=== PATIENT | male | born 1965 | race Caucasian/White ===

== ENCOUNTER 2016-11-14 09:12 | Emergency (ER) | payer SELFPAY ==
[~2016-11-14] VITALS: Ht 160 cm; Wt 88.0 kg
[2016-11-14 09:15] VITALS: BP 173/85
--- NOTE | 2016-11-14 09:20 | NUR ---
PT AMBULATED TO ER BED 3.
[2016-11-14] MEDS ORDERED: LIDOCAINE 1% 500 MG/50 ML VIAL INJ SCH (09:30)
[2016-11-14] MEDS ORDERED: KETOROLAC 60 MG/2 ML VIAL IM ONE (09:30)
[2016-11-14] MEDS ORDERED: LEVOFLOXACIN 500 MG TAB PO ONE (09:30)
--- NOTE | 2016-11-14 09:30 | NUR ---
51/M PRESENTS TO ERC/O LEFT EAR PAIN X5 DAYS. PT STATES PAIN 6/10 SHARP ACHING CONTINOUS. HX DM, HTN, HYPERLIPIDEMIA, GOUT, GLAUCOMA. AAOx4, PERRLA, BREATHING EVEN AND UNLABORED. ERMD NOTIFIED OF PATIENT STATUS.
--- NOTE | 2016-11-14 09:31 | NUR ---
Patient being evaluated by physician at bedside.
--- NOTE | 2016-11-14 10:04 | NUR ---
Patient appears to be resting comfortably in bed. Vital Signs within normal limits. Respirations even and unlabored.
[2016-11-14] MEDS ORDERED: AZITHROMYCIN 500 MG in DEXTROSE 5% 250 ML IV ONE (10:10)
[2016-11-14] MEDS ORDERED: NACL 0.9% 1,000 ML IV ONE ×2 (10:10→11:10)
[2016-11-14] MEDS ORDERED: INSULIN HUMAN REGULAR 100 UNITS/ML 10 ML VIAL IVP ONE (10:10)
[2016-11-14] MEDS ORDERED: AZITHROMYCIN 500 MG INJ VIAL IV ONE (10:21)
--- NOTE | 2016-11-14 11:30 | NUR ---
PT RESTING. VSS; PATIENT POSITIONED FOR COMFORT; HOB ELEVATED; BEDRAILS UP X2; BED DOWN. ER MD MADE AWARE OF PT STATUS.
--- NOTE | 2016-11-14 12:24 | NUR ---
PT RESTING. VSS; PATIENT POSITIONED FOR COMFORT; HOB ELEVATED; BEDRAILS UP X2; BED DOWN. ER MD MADE AWARE OF PT STATUS.
--- NOTE | 2016-11-14 12:35 | NUR ---
Patient discharged with v/s stable. Written and verbal after care instructions given and explained. Patient alert, oriented and verbalized understanding of instructions. Ambulatory with steady gait. All questions addressed prior to discharge. ID band removed. Patient advised to follow up with PMD. Rx of KEFLEX 500MG CAPSULE AND CORTISPORIN OTIC SUSPENSION given. Patient educated on indication of medication including possible reaction and side effects. Opportunity to ask questions provided and answered.
[2016-11-14 12:36] VITALS: BP 124/91
== END 2016-11-14 12:35 | disposition home or self-care (01) ==
LOC: MED 09:12
DX: H66.92 Otitis media, unspecified, left ear (principal); E11.65 Type 2 diabetes mellitus with hyperglycemia; I10 Essential (primary) hypertension
CPT/HCPCS: 36415; 80048; 82948; 96365; 96372; 96375; 99284; J0456; J1815; J1885; J7030; J7060

== ENCOUNTER 2023-01-03 20:16 | Emergency (ER) | payer OTHER ==
[~2023-01-03] VITALS: Ht 160 cm; Wt 71.4 kg
[2023-01-03 20:52] VITALS: BP 113/70
[2023-01-03 21:32] LABS: BASOPHILS % (AUTO) 0.2 % (0.0-2.0); EOSINOPHILS # (AUTO) 0.1 K/uL (0-0.4); EOSINOPHILS % (AUTO) 0.5 % (0.0-4.0); HEMATOCRIT 38.2 % (36-52); LYMPHOCYTES # (AUTO) 1.4 K/uL (2.0-11.5); LYMPHOCYTES % (AUTO) 11.1 % (20.5-51.1); MEAN CORPUSCULAR HEMOGLOBIN 29 pg (27-31); MEAN CORPUSCULAR HGB CONC 34 g/dL (33-37); MEAN CORPUSCULAR VOLUME 83.4 fL (80-94); MONOCYTES % (AUTO) 8.1 % (1.7-9.3); NEUTROPHILS # (AUTO) 9.8 K/uL (1.8-7.7); NEUTROPHILS % (AUTO) 80.1 % (42.2-75.2); PLATELET COUNT (AUTO) 284 K/uL (140-450); RED BLOOD CELL COUNT(AUTO) 4.58 MIL/uL (4.20-6.10); RED CELL DISTRIBUTION WIDTH 12.9 % (11.6-13.7); WHITE BLOOD COUNT (AUTO) 12.3 K/uL (4.8-10.8)
[2023-01-03 21:51] LABS: ANION GAP 15.6 (8-16); CARBON DIOXIDE 27.3 mmol/L (21-32); CREATININE 1.6 mg/dL (0.6-1.3); POTASSIUM 4.9 mmol/L (3.5-5.1); TOTAL BILIRUBIN 0.6 mg/dL (0.0-1.0)
--- NOTE | 2023-01-03 21:51 | NUR ---
Pt to bed 7
--- NOTE | 2023-01-03 21:51 | NUR ---
Patient resting in bed, A/Ox4, chest rise and fall symmetrical, no s/s of distress, patient on monitor.
--- NOTE | 2023-01-03 21:55 | NUR ---
ER physician at bedside.
[2023-01-03] MEDS ORDERED: NACL 0.9% 2,000 ML IV ONE (22:05)
--- NOTE | 2023-01-03 22:10 | NUR ---
Patient resting in bed, A/Ox4, chest rise and fall symmetrical, no s/s of distress, patient on monitor.
[2023-01-03 23:25] LABS: APPEARANCE,URINE CLEAR (CLEAR); BILIRUBIN,URINE NEGATIVE (NEGATIVE); BLOOD, URINE NEGATIVE (NEGATIVE); COLOR,URINE YELLOW (YELLOW); LEUKOCYTE ESTERASE ,URINE NEGATIVE (NEGATIVE); NITRITE, URINE NEGATIVE (NEGATIVE); PH,URINE 5.5 (5.0-9.0); UGLUCOSE 3+ (NEGATIVE)
[2023-01-03 23:43] LABS: RBC,URINE NONE SEEN /HPF (0-5)
--- NOTE | 2023-01-04 00:35 | NUR ---
Patient resting in bed, A/Ox4, chest rise and fall symmetrical, no c/o pain or s/s of distress, patient on monitor.
[2023-01-04] MEDS ORDERED: INSULIN REGULAR, HUMAN 100 UNIT/ML VIAL SUBQ ONE (00:55)
[2023-01-04] MEDS ORDERED: AMOX-1230 PO (01:10)
[2023-01-04] MEDS ORDERED: ACET-10509 PO (01:10)
--- NOTE | 2023-01-04 01:19 | NUR ---
Dr. Jimenes spoke with patient. Dr. Jimenes verbalized understanding of last Accucheck and ordered 10 units SQ Humulin R and stated, "Patient ok to discharge after giving 10 units SQ Humulin R. Readback compltet. Addendum: 01/04/23 at [email or web address] Jimenes spoke with patient. Dr. Jimenes verbalized understanding of last Accucheck and ordered 10 units SQ Humulin R and stated, "Patient ok to discharge after giving 10 units SQ Humulin R. Readback complete. Patient stated that when he gets home, he "will recheck his blood sugar level."
[2023-01-04 01:33] VITALS: BP 127/81
== END 2023-01-04 01:34 | disposition home or self-care (01) ==
LOC: MED 20:16
DX: E86.0 Dehydration (principal); E11.65 Type 2 diabetes mellitus with hyperglycemia; N28.9 Disorder of kidney and ureter, unspecified; J18.9 Pneumonia, unspecified organism; I10 Essential (primary) hypertension; Z79.899 Other long term (current) drug therapy
CPT/HCPCS: 36415; 71045; 80053; 81001; 83690; 84484; 85025; 93005; 96360; 96361; 96372; 99285; J1815; J7030

== ENCOUNTER 2023-04-25 04:35 | Inpatient (IN) | payer OTHER ==
[~2023-04-25] VITALS: Ht 160 cm; Wt 65.8 kg
[2023-04-25] VITALS (7 sets, daily range): BP systolic 86–123; BP diastolic 54–79; PULSE 65–107; RESP 16–20; TEMP 97.9–98.2; O2SAT 95–99
[~2023-04-25 04:35] MED LIST: ACET-10509 PO; AMOX-1230 PO
[2023-04-25] MEDS ORDERED: NACL 0.9% 1,000 ML IV ONE (05:35)
[2023-04-25] MEDS ORDERED: AZITHROMYCIN 500 MG in DEXTROSE 5% 250 ML IV ONE (05:35)
[2023-04-25 05:44] LABS: APPEARANCE,URINE CLEAR (CLEAR); BILIRUBIN,URINE NEGATIVE (NEGATIVE); BLOOD, URINE NEGATIVE (NEGATIVE); COLOR,URINE YELLOW (YELLOW); LEUKOCYTE ESTERASE ,URINE NEGATIVE (NEGATIVE); NITRITE, URINE NEGATIVE (NEGATIVE); PROTEIN,URINE NEGATIVE (NEGATIVE); UGLUCOSE 3+ (NEGATIVE); UROBILINOGEN,URINE 0.2 EU/dL (0.2 - 1)
[2023-04-25] MEDS ORDERED: cefTRIAXone 1,000 MG VIAL ONE (06:09)
[2023-04-25 06:14] LABS: BLOOD GAS PCO2 28.8 mmHg (35-45); BLOOD GAS PO2 86.2 mmHg (75-100)
[2023-04-25 06:19] LABS: BLOOD GAS O2 SAT% 97.5 % (92.0-98.5)
[2023-04-25] MEDS ORDERED: MAG SULF 2000 MG/WATER PREMIX 50 ML IV ONE (06:20)
[2023-04-25] MEDS ORDERED: methylPREDNISolone SS 125 MG in WATER STERILE 2 ML IV ONE (06:20)
[2023-04-25 06:21] LABS: BASOPHILS # (AUTO) 0.1 K/uL (0.00-0.22); BASOPHILS % (AUTO) 0.6 % (0.0-2.0); EOSINOPHILS # (AUTO) 0.1 K/uL (0-0.4); EOSINOPHILS % (AUTO) 0.4 % (0.0-4.0); HEMATOCRIT 33.2 % (36-52); HEMOGLOBIN 10.9 g/dL (12.0-18.0); LYMPHOCYTES # (AUTO) 1.7 K/uL (2.0-11.5); MEAN CORPUSCULAR HEMOGLOBIN 26 pg (27-31); MEAN CORPUSCULAR HGB CONC 33 g/dL (33-37); MEAN CORPUSCULAR VOLUME 78.6 fL (80-94); MONOCYTES # (AUTO) 0.9 K/uL (0.8-1.0); MONOCYTES % (AUTO) 7.1 % (1.7-9.3); NEUTROPHILS # (AUTO) 9.6 K/uL (1.8-7.7); NEUTROPHILS % (AUTO) 77.9 % (42.2-75.2); PLATELET COUNT (AUTO) 330 K/uL (140-450); RED BLOOD CELL COUNT(AUTO) 4.22 MIL/uL (4.20-6.10); RED CELL DISTRIBUTION WIDTH 14.8 % (11.6-13.7); WHITE BLOOD COUNT (AUTO) 12.3 K/uL (4.8-10.8)
[2023-04-25] MEDS ORDERED: methylPREDNISolone SS 125 MG/2 ML VIAL IVP SCH (06:22)
[2023-04-25 06:34] LABS: ALBUMIN 2.4 g/dL (3.4-5.0); ANION GAP 13.8 (8-16); CALCIUM 9.1 mg/dL (8.5-10.1); CARBON DIOXIDE 28.5 mmol/L (21-32); CREATININE 1.4 mg/dL (0.6-1.3); POTASSIUM 5.3 mmol/L (3.5-5.1); TOTAL BILIRUBIN 0.7 mg/dL (0.0-1.0)
[2023-04-25 06:39] LABS: LACTIC ACID 1.1 mmol/L (0.4-2.0)
[2023-04-25] MEDS ORDERED: AZITHROMYCIN 500 MG INJ VIAL IV ONE (06:44)
[2023-04-25] MEDS ORDERED: INSULIN REGULAR, HUMAN 100 UNIT/ML VIAL SUBQ ONE (09:15)
[2023-04-25] MEDS ORDERED: LORazepam 2 MG/ML VIAL IVP PRN (09:25)
[2023-04-25] MEDS ORDERED: ONDANSETRON 4 MG/2 ML VIAL IVP PRN (09:25)
[2023-04-25] MEDS ORDERED: MAG SULF 2000 MG/WATER PREMIX 50 ML IV PRN (09:25)
[2023-04-25] MEDS ORDERED: ZOLPIDEM 10 MG TAB PO PRN (09:25)
[2023-04-25] MEDS ORDERED: ACETAMINOPHEN 325 MG TAB PO PRN (09:25)
[2023-04-25] MEDS: NACL 0.9% 500 ML IV SCH ×2 (09:25→15:40)
[2023-04-25] MEDS ORDERED: POTASSIUM CHLORIDE 10 MEQ TABER PO PRN (09:25)
[2023-04-25] MEDS ORDERED: DEXTROSE 50% 50 ML SYR IVP PRN (09:25)
[2023-04-25] MEDS ORDERED: VANCOMYCIN PER PHARMACY MC PRN (09:25)
[2023-04-25 10:03] LABS: INR 0.99 (0.8-1.2); PROTHROMBIN TIME 10.4 secs (10.8-13.4)
[2023-04-25] MEDS ORDERED: SUCR1TAB6 PO (10:59)
[2023-04-25] MEDS ORDERED: HYDR-3320 PO (10:59)
[2023-04-25] MEDS ORDERED: PANT40EC56 PO (10:59)
[2023-04-25] MEDS ORDERED: DULO-29 PO (10:59)
[2023-04-25] MEDS ORDERED: ASPI-1856 PO (10:59)
[2023-04-25] MEDS ORDERED: METF-346 PO (10:59)
[2023-04-25] MEDS ORDERED: TAMS0.4C97 PO (10:59)
[2023-04-25] MEDS ORDERED: METO5TAB3 PO (10:59)
[2023-04-25] MEDS ORDERED: ATEN25TA2 PO (10:59)
[2023-04-25] MEDS ORDERED: ALLO100T21 PO (10:59)
[2023-04-25] MEDS ORDERED: VANCOMYCIN 1.25GM PREMIX 250 ML IV SCH (11:00)
[2023-04-25] MEDS: BLOOD GLUCOSE MONITORING 1 DEV DEV FS SCH ×3 (11:30→21:00)
[2023-04-25] MEDS ORDERED: fentaNYL citrate 0.05 MG/ML VIAL ONE ×2 (13:46→14:48)
[2023-04-25] MEDS ORDERED: MIDAZOLAM 2 MG/2 ML VIAL ONE ×2 (13:46)
[2023-04-25] MEDS ORDERED: LIDOCAINE 2% 1000 MG/50 ML VIAL INJ ONE (14:04)
[2023-04-25] MEDS ORDERED: MIDAZOLAM 2 MG/2 ML VIAL IVP ONE (15:30)
[2023-04-25] MEDS ORDERED: fentaNYL citrate 0.05 MG/ML VIAL IVP ONE (15:30)
[2023-04-25] MEDS: INSULIN LISPRO SLIDING SCALE 100 UNITS/ML VIAL SUBQ PRN (21:10)
[2023-04-25] MEDS: MORPHINE SULFATE 2 MG/ML SYR IVP PRN (21:13)
[2023-04-26] MEDS: NACL 0.9% 500 ML IV SCH ×3 (03:49→16:40)
[2023-04-26] MEDS: MORPHINE SULFATE 2 MG/ML SYR IVP PRN ×3 (03:54→20:55)
[2023-04-26 04:09] VITALS: BP 115/69; PULSE 90; RESP 20; TEMP 98; O2SAT 95
[2023-04-26 06:08] LABS: BASOPHILS % (AUTO) 0.3 % (0.0-2.0); EOSINOPHILS % (AUTO) 0.3 % (0.0-4.0); HEMATOCRIT 30.1 % (36-52); HEMOGLOBIN 9.9 g/dL (12.0-18.0); LYMPHOCYTES % (AUTO) 14.4 % (20.5-51.1); MEAN CORPUSCULAR HEMOGLOBIN 26 pg (27-31); MEAN CORPUSCULAR HGB CONC 33 g/dL (33-37); MEAN CORPUSCULAR VOLUME 78.1 fL (80-94); MONOCYTES % (AUTO) 7.1 % (1.7-9.3); NEUTROPHILS # (AUTO) 10.8 K/uL (1.8-7.7); NEUTROPHILS % (AUTO) 77.9 % (42.2-75.2); PLATELET COUNT (AUTO) 323 K/uL (140-450); RED BLOOD CELL COUNT(AUTO) 3.85 MIL/uL (4.20-6.10); RED CELL DISTRIBUTION WIDTH 15.2 % (11.6-13.7); WHITE BLOOD COUNT (AUTO) 13.8 K/uL (4.8-10.8)
[2023-04-26 06:31] LABS: ANION GAP 12.4 (8-16); CALCIUM 8.6 mg/dL (8.5-10.1); CARBON DIOXIDE 24.6 mmol/L (21-32)
[2023-04-26 07:03] VITALS: O2SAT 96
[2023-04-26] MEDS: BLOOD GLUCOSE MONITORING 1 DEV DEV FS SCH ×4 (07:29→20:32)
[2023-04-26] MEDS: INSULIN LISPRO SLIDING SCALE 100 UNITS/ML VIAL SUBQ PRN ×4 (07:41→20:35)
[2023-04-26 08:00] VITALS: BP 125/80; PULSE 91; PULSE 97; RESP 16; RESP 17; TEMP 98.1; O2SAT 96; O2SAT 98
[2023-04-26] MEDS: ENOXAPARIN 40 MG/0.4 ML SYR SUBQ SCH (09:15)
[2023-04-26] MEDS: metroNIDAZOLE 500 MG/NS PREMIX 100 ML IV SCH ×3 (09:53→20:46)
[2023-04-26] MEDS: VANCOMYCIN 750 MG in NACL 0.9% 250 ML IV SCH ×2 (13:06→21:04)
[2023-04-26 16:00] VITALS: BP 122/79; PULSE 97; RESP 16; TEMP 97.5; O2SAT 96
[2023-04-26 20:00] VITALS: BP 115/78; PULSE 105; RESP 16; TEMP 98.7; O2SAT 94; O2SAT 97
[2023-04-26 20:19] VITALS: O2SAT 94
[2023-04-27] MEDS: NACL 0.9% 500 ML IV SCH ×5 (01:23→23:55)
[2023-04-27] MEDS: metroNIDAZOLE 500 MG/NS PREMIX 100 ML IV SCH ×3 (05:27→20:06)
[2023-04-27 06:10] LABS: BASOPHILS % (AUTO) 0.3 % (0.0-2.0); EOSINOPHILS % (AUTO) 0.5 % (0.0-4.0); HEMATOCRIT 29.4 % (36-52); HEMOGLOBIN 9.8 g/dL (12.0-18.0); LYMPHOCYTES # (AUTO) 1.5 K/uL (2.0-11.5); LYMPHOCYTES % (AUTO) 16.4 % (20.5-51.1); MEAN CORPUSCULAR HEMOGLOBIN 26 pg (27-31); MEAN CORPUSCULAR HGB CONC 33 g/dL (33-37); MEAN CORPUSCULAR VOLUME 78.3 fL (80-94); MONOCYTES # (AUTO) 0.7 K/uL (0.8-1.0); MONOCYTES % (AUTO) 7.4 % (1.7-9.3); NEUTROPHILS % (AUTO) 75.4 % (42.2-75.2); PLATELET COUNT (AUTO) 269 K/uL (140-450); RED BLOOD CELL COUNT(AUTO) 3.75 MIL/uL (4.20-6.10); RED CELL DISTRIBUTION WIDTH 14.9 % (11.6-13.7); WHITE BLOOD COUNT (AUTO) 9.3 K/uL (4.8-10.8)
[2023-04-27 06:28] LABS: ANION GAP 14.8 (8-16); CALCIUM 8.5 mg/dL (8.5-10.1); CARBON DIOXIDE 22.3 mmol/L (21-32); CREATININE 0.9 mg/dL (0.6-1.3); POTASSIUM 4.1 mmol/L (3.5-5.1)
[2023-04-27] MEDS: BLOOD GLUCOSE MONITORING 1 DEV DEV FS SCH ×4 (06:41→21:11)
[2023-04-27] MEDS: INSULIN LISPRO SLIDING SCALE 100 UNITS/ML VIAL SUBQ PRN ×4 (06:43→21:16)
[2023-04-27 08:00] VITALS: BP 135/86; PULSE 94; RESP 18; TEMP 98.5; O2SAT 96; O2SAT 97
[2023-04-27] MEDS: ENOXAPARIN 40 MG/0.4 ML SYR SUBQ SCH (08:44)
[2023-04-27] MEDS: MORPHINE SULFATE 2 MG/ML SYR IVP PRN ×2 (10:12→20:09)
[2023-04-27] MEDS: ALBUTEROL SULFATE/IPRATROPIU 3 ML SOL IH PRN ×2 (10:14→19:02)
[2023-04-27 10:15] VITALS: PULSE 99; RESP 24; O2SAT 95
[2023-04-27] MEDS: DOCUSATE SODIUM 100 MG GELCAP PO PRN (10:54)
[2023-04-27] MEDS: VANCOMYCIN 750 MG in NACL 0.9% 250 ML IV SCH ×2 (11:22→21:29)
[2023-04-27 12:00] VITALS: PULSE 94
[2023-04-27 16:00] VITALS: BP 145/83; PULSE 94; RESP 18; TEMP 98; O2SAT 96
[2023-04-27 19:02] VITALS: PULSE 95; RESP 20; O2SAT 95
[2023-04-27 20:00] VITALS: BP 106/55; PULSE 113; RESP 16; RESP 18; TEMP 97.7; O2SAT 94
[2023-04-28] VITALS (8 sets, daily range): BP systolic 124–140; BP diastolic 73–91; PULSE 55–113; RESP 18–20; TEMP 96.8–97.9; O2SAT 91–99
[2023-04-28] MEDS: metroNIDAZOLE 500 MG/NS PREMIX 100 ML IV SCH ×2 (04:31→15:02)
[2023-04-28 05:23] LABS: BASOPHILS % (AUTO) 0.5 % (0.0-2.0); EOSINOPHILS # (AUTO) 0.1 K/uL (0-0.4); EOSINOPHILS % (AUTO) 1.1 % (0.0-4.0); HEMATOCRIT 29.4 % (36-52); HEMOGLOBIN 9.6 g/dL (12.0-18.0); LYMPHOCYTES # (AUTO) 1.8 K/uL (2.0-11.5); LYMPHOCYTES % (AUTO) 21.8 % (20.5-51.1); MEAN CORPUSCULAR HEMOGLOBIN 26 pg (27-31); MEAN CORPUSCULAR HGB CONC 33 g/dL (33-37); MEAN CORPUSCULAR VOLUME 78.9 fL (80-94); MONOCYTES # (AUTO) 0.6 K/uL (0.8-1.0); MONOCYTES % (AUTO) 7.7 % (1.7-9.3); NEUTROPHILS # (AUTO) 5.7 K/uL (1.8-7.7); NEUTROPHILS % (AUTO) 68.9 % (42.2-75.2); PLATELET COUNT (AUTO) 280 K/uL (140-450); RED BLOOD CELL COUNT(AUTO) 3.73 MIL/uL (4.20-6.10); RED CELL DISTRIBUTION WIDTH 14.7 % (11.6-13.7); WHITE BLOOD COUNT (AUTO) 8.3 K/uL (4.8-10.8)
[2023-04-28 05:52] LABS: ANION GAP 13.9 (8-16); CALCIUM 8.8 mg/dL (8.5-10.1); CARBON DIOXIDE 25.9 mmol/L (21-32); CREATININE 0.9 mg/dL (0.6-1.3); POTASSIUM 3.8 mmol/L (3.5-5.1)
[2023-04-28] MEDS: NACL 0.9% 500 ML IV SCH ×3 (06:10→17:12)
[2023-04-28] MEDS: BLOOD GLUCOSE MONITORING 1 DEV DEV FS SCH ×4 (06:42→21:44)
[2023-04-28] MEDS: INSULIN LISPRO SLIDING SCALE 100 UNITS/ML VIAL SUBQ PRN ×3 (06:51→17:10)
[2023-04-28] MEDS: ALBUTEROL SULFATE/IPRATROPIU 3 ML SOL IH PRN (07:43)
[2023-04-28] MEDS: ENOXAPARIN 40 MG/0.4 ML SYR SUBQ SCH (09:36)
[2023-04-28] MEDS: VANCOMYCIN 750 MG in NACL 0.9% 250 ML IV SCH (10:06)
[2023-04-28] MEDS: MORPHINE SULFATE 2 MG/ML SYR IVP PRN ×2 (14:48→23:28)
[2023-04-28] MEDS ORDERED: INSULIN LANTUS 100 UNITS/ML 10 ML VIAL SUBQ SCH (20:00)
[2023-04-29] MEDS ORDERED: AMPICILLIN/SULBACTAM 3 GM VIAL ONE ×2 (00:03→05:52)
[2023-04-29] MEDS: AMPICILLIN/SULBACTAM 3 GM in NACL 0.9% 100 ML IV SCH ×5 (00:18→23:59)
[2023-04-29 04:00] VITALS: PULSE 97
[2023-04-29 05:26] LABS: BASOPHILS % (AUTO) 0.5 % (0.0-2.0); EOSINOPHILS # (AUTO) 0.1 K/uL (0-0.4); EOSINOPHILS % (AUTO) 1.5 % (0.0-4.0); HEMOGLOBIN 10.1 g/dL (12.0-18.0); LYMPHOCYTES # (AUTO) 1.8 K/uL (2.0-11.5); LYMPHOCYTES % (AUTO) 19.7 % (20.5-51.1); MEAN CORPUSCULAR HEMOGLOBIN 26 pg (27-31); MEAN CORPUSCULAR HGB CONC 34 g/dL (33-37); MEAN CORPUSCULAR VOLUME 78.2 fL (80-94); MONOCYTES # (AUTO) 0.7 K/uL (0.8-1.0); MONOCYTES % (AUTO) 7.4 % (1.7-9.3); NEUTROPHILS # (AUTO) 6.5 K/uL (1.8-7.7); NEUTROPHILS % (AUTO) 70.9 % (42.2-75.2); PLATELET COUNT (AUTO) 296 K/uL (140-450); RED BLOOD CELL COUNT(AUTO) 3.84 MIL/uL (4.20-6.10); RED CELL DISTRIBUTION WIDTH 14.8 % (11.6-13.7); WHITE BLOOD COUNT (AUTO) 9.2 K/uL (4.8-10.8)
[2023-04-29 05:41] LABS: ANION GAP 11.9 (8-16); CARBON DIOXIDE 26.3 mmol/L (21-32); CREATININE 0.9 mg/dL (0.6-1.3); POTASSIUM 4.2 mmol/L (3.5-5.1)
[2023-04-29] MEDS: BLOOD GLUCOSE MONITORING 1 DEV DEV FS SCH ×4 (07:30→20:22)
[2023-04-29] MEDS: INSULIN LISPRO SLIDING SCALE 100 UNITS/ML VIAL SUBQ PRN ×4 (07:44→20:21)
[2023-04-29 08:00] VITALS: BP 140/95; PULSE 91; RESP 18; O2SAT 95
[2023-04-29] MEDS: TAMSULOSIN 0.4 MG CAP PO SCH (09:38)
[2023-04-29] MEDS: ENOXAPARIN 40 MG/0.4 ML SYR SUBQ SCH (09:40)
[2023-04-29 16:00] VITALS: BP 122/89; PULSE 101; RESP 18; TEMP 97.2; O2SAT 97
[2023-04-29 19:18] VITALS: O2SAT 94
[2023-04-29 20:00] VITALS: BP 148/89; PULSE 91; RESP 18; TEMP 98; O2SAT 96
[2023-04-29] MEDS: INSULIN LANTUS 100 UNITS/ML 10 ML VIAL SUBQ SCH (20:20)
[2023-04-30] VITALS: PULSE 91
[2023-04-30 05:04] LABS: BASOPHILS # (AUTO) 0.1 K/uL (0.00-0.22); BASOPHILS % (AUTO) 0.9 % (0.0-2.0); EOSINOPHILS # (AUTO) 0.1 K/uL (0-0.4); EOSINOPHILS % (AUTO) 1.3 % (0.0-4.0); HEMATOCRIT 32.2 % (36-52); HEMOGLOBIN 10.6 g/dL (12.0-18.0); LYMPHOCYTES # (AUTO) 1.7 K/uL (2.0-11.5); LYMPHOCYTES % (AUTO) 21.1 % (20.5-51.1); MEAN CORPUSCULAR HEMOGLOBIN 26 pg (27-31); MEAN CORPUSCULAR HGB CONC 33 g/dL (33-37); MEAN CORPUSCULAR VOLUME 78.5 fL (80-94); MONOCYTES # (AUTO) 0.5 K/uL (0.8-1.0); MONOCYTES % (AUTO) 6.1 % (1.7-9.3); NEUTROPHILS # (AUTO) 5.6 K/uL (1.8-7.7); NEUTROPHILS % (AUTO) 70.6 % (42.2-75.2); PLATELET COUNT (AUTO) 299 K/uL (140-450); RED CELL DISTRIBUTION WIDTH 15.1 % (11.6-13.7)
[2023-04-30 05:14] LABS: ANION GAP 12.4 (8-16); CALCIUM 9.1 mg/dL (8.5-10.1); CARBON DIOXIDE 26.8 mmol/L (21-32); CREATININE 0.8 mg/dL (0.6-1.3); POTASSIUM 4.2 mmol/L (3.5-5.1)
[2023-04-30] MEDS: AMPICILLIN/SULBACTAM 3 GM in NACL 0.9% 100 ML IV SCH ×4 (06:11→23:25)
[2023-04-30] MEDS: INSULIN LISPRO SLIDING SCALE 100 UNITS/ML VIAL SUBQ PRN ×2 (06:54→20:25)
[2023-04-30] MEDS: BLOOD GLUCOSE MONITORING 1 DEV DEV FS SCH ×5 (06:55→20:25)
[2023-04-30 08:00] VITALS: BP 138/80; PULSE 93; RESP 18; TEMP 96.8; O2SAT 98
[2023-04-30 08:05] VITALS: O2SAT 100
[2023-04-30] MEDS: TAMSULOSIN 0.4 MG CAP PO SCH (09:10)
[2023-04-30] MEDS: LOSARTAN 50 MG TAB PO SCH (09:11)
[2023-04-30] MEDS ORDERED: fentaNYL citrate 0.05 MG/ML - 50mL vial IV ONE (12:00)
[2023-04-30] MEDS ORDERED: ONDANSETRON 4 MG/2 ML VIAL ONE ×2 (12:00→12:58)
[2023-04-30] MEDS ORDERED: PROPOFOL 200 MG/20 ML VIAL IV ONE ×2 (12:00→12:58)
[2023-04-30] MEDS ORDERED: SUCCINYLCHOLINE CHLORIDE 200 MG/10 ML VIAL IVP ONE ×2 (12:00→12:58)
[2023-04-30] MEDS ORDERED: SEVOFLURANE 250 ML BTL INH ONE (12:00)
[2023-04-30] MEDS ORDERED: fentaNYL citrate 0.05 MG/ML VIAL ONE (12:23)
[2023-04-30] MEDS ORDERED: HYDROmorphone 1 MG/ML AMP IVP PRN ×2 (13:05)
[2023-04-30] MEDS ORDERED: METOCLOPRAMIDE 10 MG/2 ML INJ VIAL IVP PRN ×2 (13:05→13:08)
[2023-04-30] MEDS ORDERED: NACL 0.9% 1,000 ML IV SCH ×2 (13:05)
[2023-04-30] MEDS ORDERED: hydrALAZINE 20 MG/ML VIAL IVP PRN ×2 (13:06→13:09)
[2023-04-30 16:00] VITALS: BP 128/74; PULSE 101; RESP 18; TEMP 97.6; O2SAT 97
[2023-04-30] MEDS: HYDROcodone/APAP 5/325 MG 1 TAB TAB PO PRN ×2 (17:27→23:26)
[2023-04-30 20:00] VITALS: BP 115/79; PULSE 99; RESP 17; RESP 18; TEMP 97.6; O2SAT 98
[2023-04-30 20:14] VITALS: O2SAT 100
[2023-04-30] MEDS: INSULIN LANTUS 100 UNITS/ML 10 ML VIAL SUBQ SCH (20:18)
[2023-04-30] MEDS ORDERED: MORPHINE SULFATE 2 MG/ML SYR IVP PRN (21:15)
[2023-05-01 05:24] LABS: BASOPHILS # (AUTO) 0.1 K/uL (0.00-0.22); BASOPHILS % (AUTO) 0.9 % (0.0-2.0); EOSINOPHILS # (AUTO) 0.1 K/uL (0-0.4); EOSINOPHILS % (AUTO) 1.8 % (0.0-4.0); HEMATOCRIT 28.8 % (36-52); HEMOGLOBIN 9.6 g/dL (12.0-18.0); LYMPHOCYTES # (AUTO) 1.7 K/uL (2.0-11.5); LYMPHOCYTES % (AUTO) 25.5 % (20.5-51.1); MEAN CORPUSCULAR HEMOGLOBIN 26 pg (27-31); MEAN CORPUSCULAR HGB CONC 33 g/dL (33-37); MONOCYTES # (AUTO) 0.5 K/uL (0.8-1.0); MONOCYTES % (AUTO) 7.5 % (1.7-9.3); NEUTROPHILS # (AUTO) 4.3 K/uL (1.8-7.7); NEUTROPHILS % (AUTO) 64.3 % (42.2-75.2); PLATELET COUNT (AUTO) 317 K/uL (140-450); RED BLOOD CELL COUNT(AUTO) 3.64 MIL/uL (4.20-6.10); RED CELL DISTRIBUTION WIDTH 15.2 % (11.6-13.7); WHITE BLOOD COUNT (AUTO) 6.7 K/uL (4.8-10.8)
[2023-05-01] MEDS: AMPICILLIN/SULBACTAM 3 GM in NACL 0.9% 100 ML IV SCH ×4 (05:47→23:45)
[2023-05-01] MEDS: BLOOD GLUCOSE MONITORING 1 DEV DEV FS SCH ×4 (06:13→21:12)
[2023-05-01 06:20] LABS: ANION GAP 10.4 (8-16); CALCIUM 8.5 mg/dL (8.5-10.1); CARBON DIOXIDE 28.4 mmol/L (21-32); CREATININE 0.9 mg/dL (0.6-1.3); POTASSIUM 3.8 mmol/L (3.5-5.1)
[2023-05-01 08:00] VITALS: BP 145/88; PULSE 68; PULSE 93; RESP 17; TEMP 97.3; O2SAT 97
[2023-05-01] MEDS: TAMSULOSIN 0.4 MG CAP PO SCH (09:45)
[2023-05-01] MEDS: LOSARTAN 50 MG TAB PO SCH (09:45)
[2023-05-01] MEDS: HYDROcodone/APAP 5/325 MG 1 TAB TAB PO PRN ×3 (10:34→21:26)
[2023-05-01] MEDS: INSULIN LISPRO SLIDING SCALE 100 UNITS/ML VIAL SUBQ PRN ×2 (12:15→16:53)
[2023-05-01 12:32] VITALS: O2SAT 100
[2023-05-01 16:00] VITALS: BP 119/69; PULSE 82; RESP 19; TEMP 97; O2SAT 97
[2023-05-01 18:51] VITALS: PULSE 91; RESP 20; O2SAT 98
[2023-05-01 20:00] VITALS: BP 110/71; PULSE 85; RESP 18; TEMP 97.8; O2SAT 95
[2023-05-01 20:05] VITALS: PULSE 82
[2023-05-01] MEDS: INSULIN LANTUS 100 UNITS/ML 10 ML VIAL SUBQ SCH (20:27)
[2023-05-02 04:00] VITALS: BP 135/85; PULSE 94; RESP 18; TEMP 97.1; O2SAT 94
[2023-05-02] MEDS: AMPICILLIN/SULBACTAM 3 GM in NACL 0.9% 100 ML IV SCH ×2 (05:30→11:44)
[2023-05-02 06:00] LABS: BASOPHILS % (AUTO) 0.8 % (0.0-2.0); EOSINOPHILS # (AUTO) 0.1 K/uL (0-0.4); EOSINOPHILS % (AUTO) 1.6 % (0.0-4.0); HEMATOCRIT 29.5 % (36-52); HEMOGLOBIN 9.8 g/dL (12.0-18.0); LYMPHOCYTES # (AUTO) 1.7 K/uL (2.0-11.5); LYMPHOCYTES % (AUTO) 26.5 % (20.5-51.1); MEAN CORPUSCULAR HEMOGLOBIN 26 pg (27-31); MEAN CORPUSCULAR HGB CONC 33 g/dL (33-37); MEAN CORPUSCULAR VOLUME 78.5 fL (80-94); MONOCYTES # (AUTO) 0.5 K/uL (0.8-1.0); MONOCYTES % (AUTO) 8.1 % (1.7-9.3); PLATELET COUNT (AUTO) 301 K/uL (140-450); RED BLOOD CELL COUNT(AUTO) 3.76 MIL/uL (4.20-6.10); WHITE BLOOD COUNT (AUTO) 6.3 K/uL (4.8-10.8)
[2023-05-02 06:16] LABS: ANION GAP 11.6 (8-16); CALCIUM 8.7 mg/dL (8.5-10.1); CARBON DIOXIDE 29.2 mmol/L (21-32); CREATININE 0.9 mg/dL (0.6-1.3); POTASSIUM 3.8 mmol/L (3.5-5.1)
[2023-05-02] MEDS: BLOOD GLUCOSE MONITORING 1 DEV DEV FS SCH ×2 (06:31→11:35)
[2023-05-02 06:38] LABS: MAGNESIUM 1.8 mg/dL (1.8-2.4); PHOSPHORUS 3.6 mg/dL (2.5-4.9)
[2023-05-02 07:48] VITALS: O2SAT 99
[2023-05-02 08:12] VITALS: PULSE 94
[2023-05-02] MEDS: TAMSULOSIN 0.4 MG CAP PO SCH (08:37)
[2023-05-02] MEDS: LOSARTAN 50 MG TAB PO SCH (08:37)
[2023-05-02] MEDS: DOCUSATE SODIUM 100 MG GELCAP PO PRN (08:40)
[2023-05-02 09:22] VITALS: BP 115/74; PULSE 105; RESP 18; TEMP 97.1; O2SAT 99
[2023-05-02] MEDS: INSULIN LISPRO SLIDING SCALE 100 UNITS/ML VIAL SUBQ PRN (11:36)
[2023-05-02] MEDS ORDERED: AMOX-1230 PO (12:02)
[2023-05-02 14:33] VITALS: BP 145/78; PULSE 95; RESP 18; TEMP 97.6; O2SAT 99
== END 2023-05-02 15:00 | disposition home health service (06) | DRG 871 ==
LOC: MED 04:35 → MTU 09:21
PROVIDERS: ADMIT General Practice; ATTEND General Practice
PROC: 0W9B30Z Drainage of Left Pleural Cavity with Drainage Device, Percutaneous Approach (ICD-10-PCS; 2023-04-25)
PROC: 0B9C8ZX Drainage of Right Upper Lung Lobe, Via Natural or Artificial Opening Endoscopic, Diagnostic (ICD-10-PCS; 2023-04-30)
PROC: 0B9G8ZX Drainage of Left Upper Lung Lobe, Via Natural or Artificial Opening Endoscopic, Diagnostic (ICD-10-PCS; principal; 2023-04-30 12:00)
DX: A41.9 Sepsis, unspecified organism (principal); E43 Unspecified severe protein-calorie malnutrition; J85.1 Abscess of lung with pneumonia; E87.1 Hypo-osmolality and hyponatremia; N17.9 Acute kidney failure, unspecified; E87.5 Hyperkalemia; E11.65 Type 2 diabetes mellitus with hyperglycemia; E11.21 Type 2 diabetes mellitus with diabetic nephropathy; E11.43 Type 2 diabetes mellitus with diabetic autonomic (poly)neuropathy; E11.40 Type 2 diabetes mellitus with diabetic neuropathy, unspecified; I10 Essential (primary) hypertension; Z90.49 Acquired absence of other specified parts of digestive tract; Z87.891 Personal history of nicotine dependence; Z91.199 Patient's noncompliance with other medical treatment and regimen due to unspecified reason; Z68.25 Body mass index [BMI] 25.0-25.9, adult
CPT/HCPCS: 36415; 36600; 71045; 71260; 71270; 75989; 80048; 80053; 80202; 81003; 82803; 82948; 83036; 83605; 83735; 84100; 85025; 85610; 85730; 87040; 87070; 87075; 87081; 87086; 87205; 93005; 94010; 94640; 96365; 96368; 96372; 96375; 97112; 97116; 97163-GP; 97530; 99285; C1729; J0295; J0330; J0456; J0696; J1650; J1815; J2001; J2060; J2250; J2270; J2405; J2704; J2930; J3010; J3370; J3372; J3475; J3490; J7030; J7060; Q0092; Q9967

== ENCOUNTER 2023-11-16 16:21 | Emergency (ER) | payer OTHER ==
[~2023-11-16] VITALS: Ht 160 cm; Wt 68.0 kg
[~2023-11-16 16:21] MED LIST changes: +ALLO100T21 PO; +ASPI-1856 PO; +ATEN25TA2 PO; +DULO-29 PO; +HYDR-3320 PO; +METF-346 PO; +METO5TAB3 PO; +PANT40EC56 PO; +SUCR1TAB6 PO; +TAMS0.4C97 PO
[2023-11-16 17:02] VITALS: BP 162/103; PULSE 135; RESP 18; TEMP 98.8; O2SAT 99
[2023-11-16 17:29] VITALS: O2SAT 99
[2023-11-16 18:11] LABS: BASOPHILS % (AUTO) 0.4 % (0.0-2.0); EOSINOPHILS % (AUTO) 0.1 % (0.0-4.0); LYMPHOCYTES # (AUTO) 0.8 K/uL (2.0-11.5); LYMPHOCYTES % (AUTO) 5.7 % (20.5-51.1); MEAN CORPUSCULAR HEMOGLOBIN 29 pg (27-31); MEAN CORPUSCULAR HGB CONC 35 g/dL (33-37); MEAN CORPUSCULAR VOLUME 84.3 fL (80-94); MONOCYTES # (AUTO) 0.4 K/uL (0.8-1.0); MONOCYTES % (AUTO) 3.3 % (1.7-9.3); NEUTROPHILS # (AUTO) 12.5 K/uL (1.8-7.7); NEUTROPHILS % (AUTO) 90.5 % (42.2-75.2); PLATELET COUNT (AUTO) 176 K/uL (140-450); RED BLOOD CELL COUNT(AUTO) 5.46 MIL/uL (4.20-6.10); RED CELL DISTRIBUTION WIDTH 13.9 % (11.6-13.7); WHITE BLOOD COUNT (AUTO) 13.8 K/uL (4.8-10.8)
[2023-11-16] MEDS: NACL 0.9% 1,000 ML IV SCH (18:13)
[2023-11-16] MEDS: ONDANSETRON 4 MG/2 ML VIAL IVP ONE (18:21)
[2023-11-16 18:23] LABS: INR 0.88 (0.8-1.2); PARTIAL THROMBOPLASTIN TIME 20.7 secs (22-35.6); PROTHROMBIN TIME 9.3 secs (10.8-13.4)
[2023-11-16 18:25] LABS: ANION GAP 18.5 (8-16); CALCIUM 10.3 mg/dL (8.5-10.1); CARBON DIOXIDE 24.2 mmol/L (21-32); CREATININE 1.2 mg/dL (0.6-1.3); POTASSIUM 3.7 mmol/L (3.5-5.1)
[2023-11-16 18:33] LABS: ALANINE AMINOTRANSFERASE 17 U/L (12-78); ALBUMIN 4.1 g/dL (3.4-5.0); ALKALINE PHOSPHATASE 109 U/L (50-136); ASPARTATE AMINOTRANSFERASE 12 U/L (15-37); BILIRUBIN,DIRECT 0.1 mg/dL (0.0-0.3); CREATINE KINASE, TOTAL 60 U/L (39-308); LIPASE 37 U/L (16-77); TOTAL BILIRUBIN 0.5 mg/dL (0.0-1.0); TOTAL PROTEIN, SERUM 8.2 g/dL (6.4-8.2)
[2023-11-16 18:36] LABS: LACTIC ACID 2.3 mmol/L (0.4-2.0)
[2023-11-16 19:15] LABS: APPEARANCE,URINE CLEAR (CLEAR); BILIRUBIN,URINE NEGATIVE (NEGATIVE); BLOOD, URINE NEGATIVE (NEGATIVE); COLOR,URINE YELLOW (YELLOW); LEUKOCYTE ESTERASE ,URINE NEGATIVE (NEGATIVE); NITRITE, URINE NEGATIVE (NEGATIVE); PROTEIN,URINE 1+ (NEGATIVE); UGLUCOSE 3+ (NEGATIVE); UROBILINOGEN,URINE 0.2 EU/dL (0.2 - 1)
[2023-11-16] MEDS: MORPHINE SULFATE 4 MG/ML SYR IVP ONE (19:24)
[2023-11-16] MEDS: NACL 0.9% 1,000 ML IV ONE (19:27)
[2023-11-16 20:52] LABS: AMPHETAMINE, URINE NEGATIVE ng/ml (NEG <=1000); BARBITURATE, URINE NEGATIVE ng/ml (NEG <=200); BENZODIAZEPINE, URINE NEGATIVE ng/mL (NEG <=200); CANNABINOID, URINE POSITIVE ng/mL (NEG <=50); COCAINE, URINE NEGATIVE ng/mL (NEG <=300); OPIATE, URINE POSITIVE ng/mL (NEG <=2000); PHENCYCLIDINE SCREEN,URINE NEGATIVE ng/mL (NEG <=25)
[2023-11-16] MEDS ORDERED: AMOX1TAB8 PO (21:50)
[2023-11-16] MEDS ORDERED: ONDA-188 SL (21:51)
[2023-11-16] MEDS ORDERED: LID5T TP (21:51)
[2023-11-16 22:00] VITALS: BP 152/100; PULSE 116; RESP 18; TEMP 98.2; O2SAT 94
== END 2023-11-16 22:00 | disposition home or self-care (01) ==
LOC: MED 16:21
DX: S20.211A Contusion of right front wall of thorax, initial encounter (principal); S39.81XA Other specified injuries of abdomen, initial encounter; K52.9 Noninfective gastroenteritis and colitis, unspecified; E11.65 Type 2 diabetes mellitus with hyperglycemia; I12.9 Hypertensive chronic kidney disease with stage 1 through stage 4 chronic kidney disease, or unspecified chronic kidney disease; E11.22 Type 2 diabetes mellitus with diabetic chronic kidney disease; N18.9 Chronic kidney disease, unspecified; Z79.4 Long term (current) use of insulin; Z79.899 Other long term (current) drug therapy; X58.XXXA Exposure to other specified factors, initial encounter; Y93.89 Activity, other specified; Y92.89 Other specified places as the place of occurrence of the external cause; Y99.8 Other external cause status
CPT/HCPCS: 36415; 71045; 71275; 74174; 80048; 80076; 80305; 81003; 82550; 83605; 83690; 83880; 84484; 85025; 85610; 85730; 87040; 87086; 93005; 96361; 96374; 96375; 99285; J2270; J2405; J7030; Q9967

== ENCOUNTER 2024-04-02 17:00 | Emergency (ER) | payer OTHER ==
[~2024-04-02] VITALS: Ht 160 cm; Wt 69.9 kg
[~2024-04-02 17:00] MED LIST changes: -AMOX-1230 PO; -HYDR-3320 PO; +LID5T TP; +LOSA-269 PO
[2024-04-02 17:24] VITALS: BP 161/94; PULSE 78; RESP 18; TEMP 97.7; O2SAT 100
[2024-04-02] MEDS ORDERED: KETOROLAC 60 MG/2 ML VIAL IM ONE (17:53)
[2024-04-02] MEDS ORDERED: ONDANSETRON 4 MG ODT ONE (17:55)
[2024-04-02] MEDS: ONDANSETRON 4 MG ODT PO ONE (17:58)
[2024-04-02] MEDS: KETOROLAC 60 MG/2 ML VIAL IM ONE (18:03)
[2024-04-02] MEDS ORDERED: IBUP-2213 PO (18:35)
[2024-04-02] MEDS ORDERED: ONDA8TAB87 PO (18:35)
[2024-04-02 18:51] VITALS: BP 167/86; PULSE 78; RESP 18; TEMP 36.50292; O2SAT 98
== END 2024-04-02 18:51 | disposition home or self-care (01) ==
LOC: MED 17:00
DX: R10.13 Epigastric pain (principal); R11.2 Nausea with vomiting, unspecified; E11.22 Type 2 diabetes mellitus with diabetic chronic kidney disease; I12.9 Hypertensive chronic kidney disease with stage 1 through stage 4 chronic kidney disease, or unspecified chronic kidney disease; N18.9 Chronic kidney disease, unspecified; F12.90 Cannabis use, unspecified, uncomplicated; Z86.69 Personal history of other diseases of the nervous system and sense organs; Z79.899 Other long term (current) drug therapy; Z79.82 Long term (current) use of aspirin
CPT/HCPCS: 82948; 96372; 99283; J1885; Q0162

== ENCOUNTER 2024-04-22 16:55 | Emergency (ER) | payer OTHER ==
[~2024-04-22] VITALS: Ht 160 cm; Wt 68.0 kg
[~2024-04-22 16:55] MED LIST changes: -ACET-10509 PO; +ACET500T99 PO; +IBUP-2213 PO; +ONDA8TAB87 PO
[2024-04-22 17:32] VITALS: BP 122/91; PULSE 98; RESP 20; TEMP 98.1; O2SAT 100
[2024-04-22 20:34] LABS: COLOR,URINE YELLOW (YELLOW); LEUKOCYTE ESTERASE ,URINE NEGATIVE (NEGATIVE); NITRITE, URINE NEGATIVE (NEGATIVE); PROTEIN,URINE NEGATIVE (NEGATIVE); UROBILINOGEN,URINE 0.2 EU/dL (0.2 - 1)
[2024-04-22 20:34] LABS: BASOPHILS % (AUTO) 0.3 % (0.0-2.0); EOSINOPHILS # (AUTO) 0.1 K/uL (0-0.4); EOSINOPHILS % (AUTO) 0.6 % (0.0-4.0); HEMATOCRIT 41.2 % (36-52); HEMOGLOBIN 13.8 g/dL (12.0-18.0); LYMPHOCYTES # (AUTO) 1.8 K/uL (2.0-11.5); LYMPHOCYTES % (AUTO) 18.8 % (20.5-51.1); MEAN CORPUSCULAR HEMOGLOBIN 28 pg (27-31); MEAN CORPUSCULAR HGB CONC 34 g/dL (33-37); MEAN CORPUSCULAR VOLUME 81.9 fL (80-94); MONOCYTES # (AUTO) 0.9 K/uL (0.8-1.0); MONOCYTES % (AUTO) 9.5 % (1.7-9.3); NEUTROPHILS # (AUTO) 6.9 K/uL (1.8-7.7); NEUTROPHILS % (AUTO) 70.8 % (42.2-75.2); PLATELET COUNT (AUTO) 181 K/uL (140-450); RED BLOOD CELL COUNT(AUTO) 5.03 MIL/uL (4.20-6.10); RED CELL DISTRIBUTION WIDTH 15.2 % (11.6-13.7); WHITE BLOOD COUNT (AUTO) 9.8 K/uL (4.8-10.8)
[2024-04-22 20:44] LABS: CALCIUM 9.6 mg/dL (8.5-10.1); CARBON DIOXIDE 20.6 mmol/L (21-32); CREATININE 1.5 mg/dL (0.6-1.3); POTASSIUM 3.6 mmol/L (3.5-5.1)
[2024-04-22 20:49] LABS: ALBUMIN 4.1 g/dL (3.4-5.0); BILIRUBIN,DIRECT 0.2 mg/dL (0.0-0.3); TOTAL BILIRUBIN 1.1 mg/dL (0.0-1.0); TOTAL PROTEIN, SERUM 7.7 g/dL (6.4-8.2)
[2024-04-22 21:35] LABS: BILIRUBIN,URINE 1+ (NEGATIVE); BLOOD, URINE NEGATIVE (NEGATIVE); UGLUCOSE 1+ (NEGATIVE)
[2024-04-22 21:42] LABS: ICTOTEST NEGATIVE (NEGATIVE)
[2024-04-22 21:45] LABS: APPEARANCE,URINE CLEAR (CLEAR)
[2024-04-22] MEDS: NACL 0.9% 1,000 ML IV ONE (23:20)
[2024-04-23 03:48] VITALS: BP 145/77; PULSE 84; RESP 17; O2SAT 96
[2024-04-23] MEDS ORDERED: ONDANSETRON 4 MG/2 ML VIAL ONE (03:57)
[2024-04-23] MEDS: ONDANSETRON 4 MG/2 ML VIAL IVP ONE (04:06)
[2024-04-23] MEDS: MORPHINE SULFATE 4 MG/ML SYR IVP ONE (04:07)
[2024-04-23] MEDS ORDERED: ONDA-188 PO (04:57)
[2024-04-23] MEDS ORDERED: BEN10 PO (04:57)
== END 2024-04-23 05:30 | disposition home or self-care (01) ==
LOC: MED 16:55
DX: E86.0 Dehydration (principal); R10.30 Lower abdominal pain, unspecified; K59.00 Constipation, unspecified; R11.0 Nausea; E11.22 Type 2 diabetes mellitus with diabetic chronic kidney disease; I12.9 Hypertensive chronic kidney disease with stage 1 through stage 4 chronic kidney disease, or unspecified chronic kidney disease; N18.9 Chronic kidney disease, unspecified; Z86.69 Personal history of other diseases of the nervous system and sense organs; E78.5 Hyperlipidemia, unspecified; Z79.899 Other long term (current) drug therapy; Z79.82 Long term (current) use of aspirin
CPT/HCPCS: 36415; 74176; 80048; 80076; 81001; 81003; 83690; 85025; 96361; 96374; 96375; 99285; J2270; J2405; J7030

== ENCOUNTER 2024-05-03 15:33 | Inpatient (IN) | payer OTHER ==
[~2024-05-03] VITALS: Ht 160 cm; Wt 74.4 kg
[~2024-05-03 15:33] MED LIST changes: +BEN10 PO; +ONDA-188 PO
[2024-05-03 15:54] VITALS: BP 129/103; PULSE 109; RESP 18; TEMP 97.3; O2SAT 98
[2024-05-03] MEDS ORDERED: VANCOMYCIN 1,000 MG VIAL ONE (17:28)
[2024-05-03 17:34] LABS: BASOPHILS # (AUTO) 0.1 K/uL (0.00-0.22); BASOPHILS % (AUTO) 1.4 % (0.0-2.0); EOSINOPHILS # (AUTO) 0.3 K/uL (0-0.4); EOSINOPHILS % (AUTO) 3.2 % (0.0-4.0); LYMPHOCYTES # (AUTO) 1.3 K/uL (2.0-11.5); MEAN CORPUSCULAR HEMOGLOBIN 28 pg (27-31); MEAN CORPUSCULAR HGB CONC 33 g/dL (33-37); MEAN CORPUSCULAR VOLUME 84.4 fL (80-94); MONOCYTES # (AUTO) 0.3 K/uL (0.8-1.0); MONOCYTES % (AUTO) 3.2 % (1.7-9.3); NEUTROPHILS # (AUTO) 6.9 K/uL (1.8-7.7); NEUTROPHILS % (AUTO) 77.2 % (42.2-75.2); PLATELET COUNT (AUTO) 188 K/uL (140-450); RED BLOOD CELL COUNT(AUTO) 4.27 MIL/uL (4.20-6.10); RED CELL DISTRIBUTION WIDTH 14.4 % (11.6-13.7)
[2024-05-03 17:44] LABS: ANION GAP 9.2 (8-16); CALCIUM 8.7 mg/dL (8.5-10.1); CARBON DIOXIDE 32.9 mmol/L (21-32); CREATININE 1.1 mg/dL (0.6-1.3); POTASSIUM 4.1 mmol/L (3.5-5.1)
[2024-05-03] MEDS: NACL 0.9% 1,000 ML IV ONE (17:48)
[2024-05-03 17:49] LABS: ALBUMIN 2.9 g/dL (3.4-5.0); BILIRUBIN,DIRECT 0.1 mg/dL (0.0-0.3); TOTAL BILIRUBIN 0.3 mg/dL (0.0-1.0); TOTAL PROTEIN, SERUM 6.7 g/dL (6.4-8.2)
[2024-05-03] MEDS: VANCOMYCIN 1,000 MG in DEXTROSE 5% 250 ML IV ONE (17:50)
[2024-05-03 17:53] LABS: LACTIC ACID 0.5 mmol/L (0.4-2.0)
[2024-05-03] MEDS: KETOROLAC 30 MG/ML VIAL IM ONE (17:54)
[2024-05-03] MEDS ORDERED: VANCOMYCIN PER PHARMACY MC PRN (18:05)
[2024-05-03] MEDS ORDERED: DEXTROSE 50% 50 ML SYR IVP PRN (18:10)
[2024-05-03] MEDS ORDERED: INSU100S45 SUBQ (19:51)
[2024-05-03] MEDS ORDERED: LEVEMIR SUBQ (19:51)
[2024-05-03] MEDS ORDERED: CEPH-588 PO (19:51)
[2024-05-03] MEDS ORDERED: DAPA10TA PO (19:51)
[2024-05-03 20:00] VITALS: PULSE 75; RESP 19; O2SAT 96
[2024-05-03] MEDS: PANTOPRAZOLE 40 MG TABEC PO SCH (21:40)
[2024-05-03] MEDS: BLOOD GLUCOSE MONITORING 1 DEV DEV FS SCH (21:41)
[2024-05-03] MEDS: ZOLPIDEM 5 MG TAB PO PRN (21:41)
[2024-05-04] VITALS: BP 132/79; PULSE 75; RESP 19; TEMP 97.2; O2SAT 96
[2024-05-04] MEDS ORDERED: DEXTROSE 50% 50 ML SYR IVP PRN (07:10)
[2024-05-04] MEDS ORDERED: INSULIN LISPRO SLIDING SCALE 100 UNITS/ML VIAL SUBQ PRN (07:10)
[2024-05-04] MEDS ORDERED: BLOOD GLUCOSE MONITORING 1 DEV DEV FS SCH (07:30)
[2024-05-04 07:52] LABS: BASOPHILS % (AUTO) 0.6 % (0.0-2.0); EOSINOPHILS # (AUTO) 0.1 K/uL (0-0.4); HEMATOCRIT 33.1 % (36-52); HEMOGLOBIN 11.1 g/dL (12.0-18.0); LYMPHOCYTES # (AUTO) 1.1 K/uL (2.0-11.5); LYMPHOCYTES % (AUTO) 15.5 % (20.5-51.1); MEAN CORPUSCULAR HEMOGLOBIN 28 pg (27-31); MEAN CORPUSCULAR HGB CONC 33 g/dL (33-37); MEAN CORPUSCULAR VOLUME 83.7 fL (80-94); MONOCYTES # (AUTO) 0.4 K/uL (0.8-1.0); MONOCYTES % (AUTO) 6.1 % (1.7-9.3); NEUTROPHILS # (AUTO) 5.6 K/uL (1.8-7.7); NEUTROPHILS % (AUTO) 76.8 % (42.2-75.2); PLATELET COUNT (AUTO) 153 K/uL (140-450); RED BLOOD CELL COUNT(AUTO) 3.95 MIL/uL (4.20-6.10); RED CELL DISTRIBUTION WIDTH 14.6 % (11.6-13.7); WHITE BLOOD COUNT (AUTO) 7.3 K/uL (4.8-10.8)
[2024-05-04 08:00] VITALS: BP 154/84; PULSE 99; RESP 18; TEMP 97.6; O2SAT 98
[2024-05-04] MEDS: atenoloL 25 MG TAB PO SCH (08:35)
[2024-05-04] MEDS: ECOTRIN 81 MG TABEC PO SCH (08:35)
[2024-05-04] MEDS: TAMSULOSIN 0.4 MG CAP PO SCH (08:35)
[2024-05-04] MEDS: allopurinoL 100 MG TAB PO SCH (08:36)
[2024-05-04] MEDS: LOSARTAN 25 MG TAB PO SCH (08:36)
[2024-05-04 10:17] LABS: ALBUMIN 2.8 g/dL (3.4-5.0); ANION GAP 11.9 (8-16); CALCIUM 8.7 mg/dL (8.5-10.1); CARBON DIOXIDE 29.5 mmol/L (21-32); CREATININE 0.9 mg/dL (0.6-1.3); MAGNESIUM 1.9 mg/dL (1.8-2.4); PHOSPHORUS 3.8 mg/dL (2.5-4.9); POTASSIUM 4.4 mmol/L (3.5-5.1); TOTAL BILIRUBIN 0.3 mg/dL (0.0-1.0); TOTAL PROTEIN, SERUM 6.5 g/dL (6.4-8.2)
[2024-05-04] MEDS: PIPERACILLIN/TAZOBACTAM 3.375 GM in DEXTROSE 5% 50 ML IV SCH (12:23)
[2024-05-04] MEDS: MORPHINE SULFATE 2 MG/ML SYR IVP PRN (12:34)
[2024-05-04] MEDS: VANCOMYCIN 1,000 MG in DEXTROSE 5% 250 ML IV SCH (13:26)
[2024-05-04] MEDS ORDERED: hydrALAZINE 20 MG/ML VIAL IVP PRN (17:40)
[2024-05-04 20:00] VITALS: PULSE 89; RESP 18; O2SAT 98
[2024-05-05] VITALS: BP 145/88; PULSE 89; RESP 18; TEMP 97.1; O2SAT 98
[2024-05-05] MEDS: ONDANSETRON 4 MG/2 ML VIAL IVP PRN (05:05)
[2024-05-05 06:38] LABS: BASOPHILS % (AUTO) 0.4 % (0.0-2.0); EOSINOPHILS # (AUTO) 0.1 K/uL (0-0.4); EOSINOPHILS % (AUTO) 0.7 % (0.0-4.0); HEMOGLOBIN 11.4 g/dL (12.0-18.0); LYMPHOCYTES % (AUTO) 11.4 % (20.5-51.1); MEAN CORPUSCULAR HEMOGLOBIN 28 pg (27-31); MEAN CORPUSCULAR HGB CONC 33 g/dL (33-37); MEAN CORPUSCULAR VOLUME 83.1 fL (80-94); MONOCYTES # (AUTO) 0.6 K/uL (0.8-1.0); MONOCYTES % (AUTO) 6.7 % (1.7-9.3); NEUTROPHILS # (AUTO) 7.3 K/uL (1.8-7.7); NEUTROPHILS % (AUTO) 80.8 % (42.2-75.2); PLATELET COUNT (AUTO) 161 K/uL (140-450); RED BLOOD CELL COUNT(AUTO) 4.09 MIL/uL (4.20-6.10); RED CELL DISTRIBUTION WIDTH 14.5 % (11.6-13.7); WHITE BLOOD COUNT (AUTO) 9.1 K/uL (4.8-10.8)
[2024-05-05 07:44] LABS: ALBUMIN 2.7 g/dL (3.4-5.0); ANION GAP 13.8 (8-16); CALCIUM 8.8 mg/dL (8.5-10.1); CARBON DIOXIDE 28.5 mmol/L (21-32); CREATININE 0.9 mg/dL (0.6-1.3); MAGNESIUM 1.7 mg/dL (1.8-2.4); PHOSPHORUS 3.6 mg/dL (2.5-4.9); POTASSIUM 3.3 mmol/L (3.5-5.1); TOTAL BILIRUBIN 0.5 mg/dL (0.0-1.0); TOTAL PROTEIN, SERUM 6.8 g/dL (6.4-8.2)
[2024-05-05 08:00] VITALS: BP 146/88; PULSE 98; RESP 20; O2SAT 98
[2024-05-05] MEDS: POTASSIUM CHLORIDE 10 MEQ TABER PO PRN (09:37)
[2024-05-05] MEDS: MAGNESIUM OXIDE 400 MG TAB PO PRN (14:51)
[2024-05-05 16:00] VITALS: BP 158/91; PULSE 99; RESP 18; TEMP 98.2; O2SAT 99
[2024-05-05] MEDS: LIDOCAINE/EPI 1% 1:100000 20 ML VIAL INJ ONE (18:42)
[2024-05-05] MEDS: LIDOCAINE 1% 500 MG/50 ML VIAL ONE (18:43)
[2024-05-05] MEDS: BUPIVACAINE-MPF 0.25% 30 ML VIAL INJ ONE (18:43)
[2024-05-05] MEDS: MIDAZOLAM 2 MG/2 ML VIAL ONE (18:45)
[2024-05-05] MEDS: fentaNYL citrate 0.05 MG/ML VIAL ONE (18:45)
[2024-05-05] MEDS: ONDANSETRON 4 MG/2 ML VIAL ONE (18:46)
[2024-05-05] MEDS: METOCLOPRAMIDE 10 MG/2 ML INJ VIAL ONE (18:46)
[2024-05-05] MEDS: BLOOD GLUCOSE MONITORING 1 DEV DEV FS ONE (19:10)
[2024-05-05] MEDS ORDERED: ONDANSETRON 4 MG/2 ML VIAL IVP PRN (19:10)
[2024-05-05] MEDS ORDERED: HYDROmorphone 1 MG/ML AMP IVP PRN (19:10)
[2024-05-05] MEDS ORDERED: MEPERIDINE 25 MG/ML SYR IVP PRN (19:10)
[2024-05-05] MEDS: NACL 0.9% 1,000 ML IV SCH (19:10)
[2024-05-05] MEDS ORDERED: diphenhydrAMINE 50 MG/ML VIAL IVP PRN (19:10)
[2024-05-05] MEDS: KETOROLAC 30 MG/ML VIAL ONE (19:11)
[2024-05-05 20:00] VITALS: PULSE 103; RESP 16; O2SAT 99
[2024-05-05 20:32] VITALS: BP 128/93; PULSE 103; RESP 16; TEMP 98; O2SAT 99
[2024-05-05] MEDS: ACETAMINOPHEN 325 MG TAB PO PRN (21:06)
[2024-05-06 04:00] VITALS: BP 128/76; PULSE 109; RESP 19; TEMP 97.8; O2SAT 98
[2024-05-06 06:49] LABS: BASOPHILS % (AUTO) 0.2 % (0.0-2.0); EOSINOPHILS # (AUTO) 0.1 K/uL (0-0.4); EOSINOPHILS % (AUTO) 0.8 % (0.0-4.0); HEMATOCRIT 33.6 % (36-52); HEMOGLOBIN 11.3 g/dL (12.0-18.0); LYMPHOCYTES # (AUTO) 0.9 K/uL (2.0-11.5); LYMPHOCYTES % (AUTO) 10.5 % (20.5-51.1); MEAN CORPUSCULAR HEMOGLOBIN 28 pg (27-31); MEAN CORPUSCULAR HGB CONC 34 g/dL (33-37); MEAN CORPUSCULAR VOLUME 82.4 fL (80-94); MONOCYTES # (AUTO) 0.7 K/uL (0.8-1.0); MONOCYTES % (AUTO) 8.5 % (1.7-9.3); PLATELET COUNT (AUTO) 155 K/uL (140-450); RED BLOOD CELL COUNT(AUTO) 4.07 MIL/uL (4.20-6.10); RED CELL DISTRIBUTION WIDTH 14.3 % (11.6-13.7); WHITE BLOOD COUNT (AUTO) 8.8 K/uL (4.8-10.8)
[2024-05-06 07:13] LABS: ALBUMIN 2.6 g/dL (3.4-5.0); ANION GAP 13.2 (8-16); CALCIUM 8.4 mg/dL (8.5-10.1); CARBON DIOXIDE 27.2 mmol/L (21-32); CREATININE 1.3 mg/dL (0.6-1.3); MAGNESIUM 1.9 mg/dL (1.8-2.4); PHOSPHORUS 3.7 mg/dL (2.5-4.9); POTASSIUM 3.4 mmol/L (3.5-5.1); TOTAL BILIRUBIN 0.5 mg/dL (0.0-1.0); TOTAL PROTEIN, SERUM 6.3 g/dL (6.4-8.2)
[2024-05-06 08:00] VITALS: PULSE 102; RESP 18; O2SAT 98
[2024-05-06] MEDS: INSULIN LISPRO SLIDING SCALE 100 UNITS/ML VIAL SUBQ PRN (09:51)
[2024-05-06 16:00] VITALS: BP 119/75; PULSE 73; RESP 18; TEMP 97.7; O2SAT 97
[2024-05-06 20:00] VITALS: BP 116/68; PULSE 75; RESP 19; TEMP 98; O2SAT 94
[2024-05-07 04:00] VITALS: BP 132/80; PULSE 84; RESP 19; TEMP 97.9; O2SAT 98
[2024-05-07 07:45] LABS: BASOPHILS % (AUTO) 0.5 % (0.0-2.0); EOSINOPHILS # (AUTO) 0.1 K/uL (0-0.4); EOSINOPHILS % (AUTO) 1.7 % (0.0-4.0); HEMATOCRIT 29.2 % (36-52); HEMOGLOBIN 9.9 g/dL (12.0-18.0); LYMPHOCYTES # (AUTO) 1.8 K/uL (2.0-11.5); LYMPHOCYTES % (AUTO) 26.4 % (20.5-51.1); MEAN CORPUSCULAR HEMOGLOBIN 28 pg (27-31); MEAN CORPUSCULAR HGB CONC 34 g/dL (33-37); MEAN CORPUSCULAR VOLUME 82.5 fL (80-94); MONOCYTES # (AUTO) 0.6 K/uL (0.8-1.0); MONOCYTES % (AUTO) 9.2 % (1.7-9.3); NEUTROPHILS # (AUTO) 4.2 K/uL (1.8-7.7); NEUTROPHILS % (AUTO) 62.2 % (42.2-75.2); PLATELET COUNT (AUTO) 152 K/uL (140-450); RED BLOOD CELL COUNT(AUTO) 3.53 MIL/uL (4.20-6.10); RED CELL DISTRIBUTION WIDTH 14.5 % (11.6-13.7); WHITE BLOOD COUNT (AUTO) 6.7 K/uL (4.8-10.8)
[2024-05-07 08:00] VITALS: PULSE 102; RESP 20; O2SAT 98
[2024-05-07 08:42] LABS: ALBUMIN 2.5 g/dL (3.4-5.0); ANION GAP 11.1 (8-16); CALCIUM 8.5 mg/dL (8.5-10.1); CARBON DIOXIDE 27.3 mmol/L (21-32); CREATININE 1.2 mg/dL (0.6-1.3); MAGNESIUM 1.7 mg/dL (1.8-2.4); PHOSPHORUS 3.3 mg/dL (2.5-4.9); POTASSIUM 3.4 mmol/L (3.5-5.1); TOTAL BILIRUBIN 0.4 mg/dL (0.0-1.0); TOTAL PROTEIN, SERUM 6.1 g/dL (6.4-8.2)
[2024-05-07 16:00] VITALS: BP 148/86; PULSE 68; RESP 20; TEMP 98.2; O2SAT 97
[2024-05-07] MEDS ORDERED: VANCOMYCIN PER PHARMACY MC PRN (18:15)
[2024-05-07 20:00] VITALS: BP 137/85; PULSE 80; RESP 19; TEMP 97.5; O2SAT 97
[2024-05-07] MEDS ORDERED: VANCOMYCIN HCL 750 MG in DEXTROSE 5% 250 ML IV SCH (23:00)
[2024-05-07] MEDS: VANCOMYCIN HCL 750 MG in NACL 0.9% 250 ML IV SCH (23:05)
[2024-05-08 04:00] VITALS: BP 118/66; PULSE 85; RESP 18; TEMP 97.5; O2SAT 98
[2024-05-08 06:52] LABS: BASOPHILS % (AUTO) 0.6 % (0.0-2.0); EOSINOPHILS # (AUTO) 0.1 K/uL (0-0.4); EOSINOPHILS % (AUTO) 1.2 % (0.0-4.0); HEMOGLOBIN 10.5 g/dL (12.0-18.0); LYMPHOCYTES # (AUTO) 1.4 K/uL (2.0-11.5); LYMPHOCYTES % (AUTO) 25.9 % (20.5-51.1); MEAN CORPUSCULAR HEMOGLOBIN 27 pg (27-31); MEAN CORPUSCULAR HGB CONC 33 g/dL (33-37); MEAN CORPUSCULAR VOLUME 83.3 fL (80-94); MONOCYTES # (AUTO) 0.4 K/uL (0.8-1.0); NEUTROPHILS # (AUTO) 3.5 K/uL (1.8-7.7); NEUTROPHILS % (AUTO) 64.3 % (42.2-75.2); PLATELET COUNT (AUTO) 172 K/uL (140-450); RED BLOOD CELL COUNT(AUTO) 3.84 MIL/uL (4.20-6.10); RED CELL DISTRIBUTION WIDTH 14.4 % (11.6-13.7); WHITE BLOOD COUNT (AUTO) 5.5 K/uL (4.8-10.8)
[2024-05-08 07:17] LABS: ALBUMIN 2.4 g/dL (3.4-5.0); ANION GAP 12.1 (8-16); CALCIUM 8.7 mg/dL (8.5-10.1); CARBON DIOXIDE 25.9 mmol/L (21-32); CREATININE 0.9 mg/dL (0.6-1.3); MAGNESIUM 1.7 mg/dL (1.8-2.4); PHOSPHORUS 3.4 mg/dL (2.5-4.9); TOTAL BILIRUBIN 0.3 mg/dL (0.0-1.0); TOTAL PROTEIN, SERUM 6.2 g/dL (6.4-8.2)
[2024-05-08 08:00] VITALS: PULSE 74; RESP 18; O2SAT 98
[2024-05-08 16:00] VITALS: BP 123/89; PULSE 84; RESP 18; TEMP 98.3; O2SAT 98
[2024-05-08 20:00] VITALS: PULSE 70; RESP 18; O2SAT 95
[2024-05-09] VITALS: BP 116/72; PULSE 68; RESP 18; TEMP 97.6; O2SAT 96
[2024-05-09 08:00] VITALS: BP 172/97; PULSE 78; RESP 18; TEMP 97.5; O2SAT 98
[2024-05-09 10:32] LABS: BASOPHILS % (AUTO) 0.6 % (0.0-2.0); EOSINOPHILS # (AUTO) 0.1 K/uL (0-0.4); HEMATOCRIT 30.8 % (36-52); HEMOGLOBIN 10.3 g/dL (12.0-18.0); LYMPHOCYTES # (AUTO) 1.6 K/uL (2.0-11.5); LYMPHOCYTES % (AUTO) 26.2 % (20.5-51.1); MEAN CORPUSCULAR HEMOGLOBIN 28 pg (27-31); MEAN CORPUSCULAR HGB CONC 33 g/dL (33-37); MEAN CORPUSCULAR VOLUME 82.4 fL (80-94); MONOCYTES # (AUTO) 0.5 K/uL (0.8-1.0); MONOCYTES % (AUTO) 7.5 % (1.7-9.3); NEUTROPHILS % (AUTO) 64.7 % (42.2-75.2); PLATELET COUNT (AUTO) 173 K/uL (140-450); RED BLOOD CELL COUNT(AUTO) 3.74 MIL/uL (4.20-6.10); RED CELL DISTRIBUTION WIDTH 14.3 % (11.6-13.7); WHITE BLOOD COUNT (AUTO) 6.2 K/uL (4.8-10.8)
[2024-05-09 10:37] LABS: ANION GAP 9.3 (8-16); CALCIUM 8.7 mg/dL (8.5-10.1); CARBON DIOXIDE 26.5 mmol/L (21-32); CREATININE 0.9 mg/dL (0.6-1.3); POTASSIUM 3.8 mmol/L (3.5-5.1)
[2024-05-09] MEDS ORDERED: SULF-59 PO (12:07)
[2024-05-09 12:58] VITALS: BP 172/97; PULSE 78; RESP 18; TEMP 97.5
== END 2024-05-09 16:26 | disposition home or self-care (01) | DRG 628 ==
LOC: MED 15:33 → MMU 18:01 → MTU 18:31
PROVIDERS: ADMIT Student in an Organized Health Care Education/Training Program; ATTEND Student in an Organized Health Care Education/Training Program
PROC: 0PBT0ZZ Excision of Right Finger Phalanx, Open Approach (ICD-10-PCS; principal; 2024-05-05 18:20)
DX: E11.69 Type 2 diabetes mellitus with other specified complication (principal); E43 Unspecified severe protein-calorie malnutrition; M86.8X4 Other osteomyelitis, hand; L02.511 Cutaneous abscess of right hand; L03.011 Cellulitis of right finger; S62.630A Displaced fracture of distal phalanx of right index finger, initial encounter for closed fracture; J44.9 Chronic obstructive pulmonary disease, unspecified; E78.5 Hyperlipidemia, unspecified; E87.6 Hypokalemia; E11.22 Type 2 diabetes mellitus with diabetic chronic kidney disease; I12.9 Hypertensive chronic kidney disease with stage 1 through stage 4 chronic kidney disease, or unspecified chronic kidney disease; N18.9 Chronic kidney disease, unspecified; W26.0XXA Contact with knife, initial encounter; Z79.82 Long term (current) use of aspirin; Z79.899 Other long term (current) drug therapy; Y93.89 Activity, other specified; Y92.89 Other specified places as the place of occurrence of the external cause; Y99.8 Other external cause status; Z68.29 Body mass index [BMI] 29.0-29.9, adult
CPT/HCPCS: 36415; 73140; 80048; 80053; 80076; 80202; 82948; 83036; 83605; 83735; 84100; 85025; 87040; 87070; 87075; 87081; 87186; 87205; 90471; 90715; 96365; 96372; 99285; J0360; J1815; J1885; J2001; J2250; J2270; J2405; J2543; J2765; J3010; J3370; J3490; J7030; J7060